=== PATIENT | male | born 1965 | race Two or more races ===

== ENCOUNTER 2020-12-17 11:34 | Emergency (ER) | payer SELFPAY ==
[~2020-12-17] VITALS: Ht 167.6 cm; Wt 72.6 kg
--- NOTE | 2020-12-17 11:42 | NUR ---
TEQUILA FROM AN ALLEY, CALLED IN BY A BYSTANDER. TO ER BED 10. INTOXICATED BUT ANSWERS APPROPRIATELY. BROUGHT IN FOR ACOHOL INTOXIACATION, PT ADMITS TO DRINKING ALCOHOL. PT VERBALIZES THAT HE IS DEPRESSED BUT DENIES ANY THOUGHT OF SUICIDE NOR HOMICIDE. DENEIS HALLUCINATIONS. WAS AT THE BEDSIDE FOR EVAL. AWAITING FOR ORDERS
--- NOTE | 2020-12-17 12:15 | NUR ---
SEEN AND EXAMINED BY .
--- NOTE | 2020-12-17 12:23 | NUR ---
ER PHLEB AT BEDSIDE FOR BLOOD DRAW.
[2020-12-17 12:33] LABS: BASOPHILS # (AUTO) 0.1 /CMM (0.0-0.2); BASOPHILS % (AUTO) 0.9 % (0.0-2.0); EOSINOPHILS % (AUTO) 0.6 % (0.0-6.0); HEMATOCRIT 39 % (39-51); HEMOGLOBIN 13.4 g/dL (13.5-17.5); LYMPHOCYTES # (AUTO) 1.3 /CMM (0.8-4.8); LYMPHOCYTES % (AUTO) 18.4 % (20.0-44.0); MEAN CORPUSCULAR HGB CONC 35 g/dl (31.0-36.0); MEAN CORPUSCULAR VOLUME 87 fL (80-96); MONOCYTES # (AUTO) 0.5 /CMM (0.1-1.30); MONOCYTES % (AUTO) 7.7 % (2.0-12.0); NEUTROPHILS # (AUTO) 5.1 /CMM (1.8-8.9); NEUTROPHILS % (AUTO) 72.4 % (43.0-81.0); PLATELET COUNT (AUTO) 210 /CMM (150-450); RED BLOOD CELL COUNT(AUTO) 4.46 MIL/uL (4.5-6.0); WHITE BLOOD COUNT (AUTO) 7.1 K/uL (4.3-11.0)
[2020-12-17 13:30] LABS: CALCIUM, SERUM 8.3 mg/dL (8.5-10.1); CARBON DIOXIDE 28 mmol/L (21-32); CHLORIDE 105 mmol/L (98-107); CREATININE 0.7 mg/dL (0.6-1.3); GLUCOSE 191 mg/dL (74-106); POTASSIUM 3.9 mmol/L (3.5-5.1); SODIUM SERUM 138 mmol/L (136-145); UREA NITROGEN, BLOOD 11 mg/dL (7-18)
[2020-12-17 13:36] LABS: ALANINE AMINOTRANSFERASE 149 U/L (12-78); ALBUMIN 3.1 g/dL (3.4-5.0); ALCOHOL, BLOOD < 3 mg/dL (0-0); ALKALINE PHOSPHATASE 75 U/L (46-116); ASPARTATE AMINOTRANSFERASE 169 U/L (15-37); BILIRUBIN,DIRECT 0.2 mg/dL (0.0-0.2); BILIRUBIN,TOTAL 0.8 mg/dL (0.2-1.0); TOTAL PROTEIN, SERUM 6.4 g/dL (6.4-8.2)
[2020-12-17 13:37] LABS: ACETAMINOPHEN < 2 ug/ml (10-30)
[2020-12-17 13:46] LABS: BILIRUBIN,URINE SMALL (NEGATIVE); COLOR,URINE YELLOW (YELLOW); LEUKOCYTE ESTERASE ,URINE Negative (NEGATIVE); NITRITE, URINE Negative (NEGATIVE); PROTEIN,URINE 100 mg/dl (NEGATIVE); UGLUCOSE 100 MG/DL mg/dL (NEGATIVE)
[2020-12-17 13:50] LABS: BACTERIA,URINE Rare /HPF (None Seen); SQUAMOUS EPITHELIAL CELL,UR Few /HPF (None Seen); WBC,URINE NONE SEEN /HPF (0-3)
[2020-12-17] MEDS ORDERED: LORAZEPAM INJ 2 MG/ML VIAL IM ONE (14:00)
[2020-12-17] MEDS ORDERED: LORAZEPAM INJ 2 MG/ML VIAL ONE (14:10)
[2020-12-17] MEDS ORDERED: diphenhydrAMINE HCL 50 MG/ML VIAL ONE ×2 (14:10→14:12)
[2020-12-17] MEDS ORDERED: diphenhydrAMINE HCL 50 MG/ML VIAL IM ONE (14:30)
--- NOTE | 2020-12-17 15:04 | NUR ---
PT IS WHEELED TO CT SCAN VIA [facility]
--- NOTE | 2020-12-17 20:08 | NUR ---
CALLED CREATIVE GURU DANK MEJIA FOR EVALUATION
--- NOTE | 2020-12-17 21:03 | NUR ---
DANK CARMEN AT BEDSIDE FOR EVALUATION
--- NOTE | 2020-12-17 21:20 | NUR ---
pt provided with food and juice
[2020-12-17] MEDS ORDERED: OLANZAPINE 10 MG VIAL IM ONE ×2 (21:30→21:42)
--- NOTE | 2020-12-17 23:50 | NUR ---
PT PROVIDED WITH FOOD AND JUICE PER REQUEST
--- NOTE | 2020-12-18 02:10 | NUR ---
PT THRASHING IN BED, CONSTANTLY NEEDS TO BE REDIRECTED. SITTER STILL AT BEDSIDE. MD AWARE. WILL CONTINUE TO MONITOR
[2020-12-18] MEDS ORDERED: HALOPERIDOL LACTATE INJ 5 MG/ML VIAL ONE (02:16)
[2020-12-18] MEDS ORDERED: HALOPERIDOL LACTATE INJ 5 MG/ML VIAL IM ONE (02:30)
--- NOTE | 2020-12-18 03:07 | NUR ---
PT NOW RESTING COMFORTABLY IN BED, EASILY AROUSABLE. VITAL SIGNS STABLE. NO ACUTE DISTRESS NOTED AT THIS TIME. SITTER STILL AT BEDSIDE, WILL CONTINUE TO MONITOR
--- NOTE | 2020-12-18 06:04 | NUR ---
PT RESTING COMFORTABLY IN BED. VITAL SIGNS STABLE. SITTER STILL AT BEDSIDE, WILL CONTINUE TO MONITOR
--- NOTE | 2020-12-18 11:48 | NUR ---
CALLED [facility] [phone] TO REASSESS LEFT MSG.
--- NOTE | 2020-12-18 13:23 | NUR ---
Patient given written and verbal discharge instructions. Patient verbalizes understanding of instructions. Patient is ambulatory with steady gait. Refuses offer of senior living placement. Patient given list of available shelters in surrounding area.
[2020-12-18 13:25] VITALS: BP 122/71
== END 2020-12-18 13:25 | disposition home or self-care (01) ==
LOC: ER 11:37
DX: R41.82 Altered mental status, unspecified (principal); R45.1 Restlessness and agitation; R74.01 Elevation of levels of liver transaminase levels; F10.129 Alcohol abuse with intoxication, unspecified; R94.31 Abnormal electrocardiogram [ECG] [EKG]; Y90.9 Presence of alcohol in blood, level not specified
CPT/HCPCS: 36415; 70450; 80048; 80076; 80299; 80307; 80320; 81001; 85025; 93005 ×2; 96372 ×3; 99291; J1200 ×2; J1630; J2060; J3490; G0480

== ENCOUNTER 2022-02-20 11:14 | Emergency (ER) | payer SELFPAY ==
[2022-02-20] MEDS ORDERED: ONDANSETRON HCL/PF 4 MG/2 ML VIAL ONE (11:19)
[2022-02-20] MEDS ORDERED: MORPHINE SULFATE INJ 2 MG/ML DISP.SYRIN ONE (11:20)
--- NOTE | 2022-02-20 11:30 | NUR ---
CALLED TO TRIAGE,NO ANSWER
--- NOTE | 2022-02-20 12:05 | NUR ---
CALLED TO TRIAGE,NO ANSWER
--- NOTE | 2022-02-20 13:41 | NUR ---
CALLED TO TRIAGE,NO ANSWER
== END 2022-02-20 13:43 | disposition left against medical advice (07) ==
LOC: ER 11:16
DX: Z53.21 Procedure and treatment not carried out due to patient leaving prior to being seen by health care provider (principal)
CPT/HCPCS: J2270; J2405